=== PATIENT | male | born 2005 | race Caucasian/White ===

== ENCOUNTER 2024-12-11 09:00 | Inpatient (IN) | payer OTHER ==
[~2024-12-11] VITALS: Ht 175.3 cm; Wt 85.0 kg
[2024-12-11 09:34] LABS: HEMATOCRIT 43.7 % (42.0-52.0); HEMOGLOBIN 14.9 g/dl (13.5-17.5); MEAN CORPUSCULAR HEMOGLOBIN 29.2 pg (27.0-33.0); MEAN CORPUSCULAR HGB CONC 34.1 g/dl (32.0-36.5); MEAN CORPUSCULAR VOLUME 85.7 fl (80.0-96.0); PLATELET COUNT, AUTOMATED 177 10^3/uL (150-450)
[2024-12-11 09:59] LABS: ETHYL ALCOHOL (ETHANOL) 0.004 % (0.000-0.010)
[2024-12-11 10:01] LABS: ALBUMIN 4.5 G/DL (3.2-5.2); ALKALINE PHOSPHATASE 87 U/L (40-129); ALT/SGPT 31 U/L (7.0-40); AST/SGOT 17 U/L (<34); BILIRUBIN,DIRECT 0.3 MG/DL (<0.4); BILIRUBIN,TOTAL 0.8 MG/DL (0.3-1.2); BLOOD UREA NITROGEN 10 MG/DL (9-23); CALCIUM LEVEL 9.7 MG/DL (8.5-10.1); CARBON DIOXIDE LEVEL 28 MMOL/L (20-31); CHLORIDE LEVEL 106 MMOL/L (98-107); CREATININE FOR GFR 0.83 MG/DL (0.70-1.30); GLOMERULAR FILTRATION RATE > 90.0 (>60); GLUCOSE, FASTING 88 MG/DL (60-100); SALICYLATE LEVEL < 3.0 MG/DL (<30); SODIUM LEVEL 143 MMOL/L (136-145); TOTAL PROTEIN 7.4 G/DL (5.7-8.2)
[2024-12-11 10:03] LABS: THYROID STIMULATING HORMONE 1.628 uIU/ML (0.48-4.17)
[2024-12-11 10:35] LABS: AMPHETAMINES LEVEL URINE NEGATIVE (NEGATIVE); BARBITURATES URINE NEGATIVE (NEGATIVE); BENZODIAZEPINES URINE NEGATIVE (NEGATIVE); CANNABINOIDS URINE NEGATIVE (NEGATIVE); COCAINE METABOLITE URINE NEGATIVE (NEGATIVE); METHADONE URINE NEGATIVE (NEGATIVE); OPIATES URINE NEGATIVE (NEGATIVE); PHENCYCLIDINE URINE NEGATIVE (NEGATIVE)
[2024-12-11] MEDS ORDERED: HOME MED LIST COMPLETE! XX SCH (11:35)
[2024-12-11] MEDS ORDERED: NAPR-885 PO (11:35)
[2024-12-11] MEDS ORDERED: METH-1165 PO (11:35)
[2024-12-11] MEDS ORDERED: diphenhydrAMINE 25MG CAP PO PRN (13:05)
[2024-12-11] MEDS ORDERED: LORazepam 1 MG TAB PO PRN (13:05)
[2024-12-11] MEDS ORDERED: OLANZapine 5 MG TAB PO PRN (13:05)
[2024-12-11] MEDS ORDERED: MAALOX 30 ML SUSP *UDC PO PRN (13:05)
[2024-12-11] MEDS ORDERED: MOM 30ML SUSPENSION UDC PO PRN (13:05)
[2024-12-11] MEDS ORDERED: traZODone 50 MG TAB PO PRN (13:05)
[2024-12-11 14:15] VITALS: BP 101/59; TEMP 97.8; O2SAT 99
[2024-12-12 06:44] VITALS: BP 108/54; TEMP 97.2; O2SAT 100
[2024-12-12] MEDS: NICOTINE 14 MG/24 HR TRANSDERMAL TD SCH (08:39)
[2024-12-12] MEDS: ESCITALOPRAM OXALATE 10 MG TAB (LEXAPRO) PO SCH (10:34)
[2024-12-12 16:00] VITALS: BP 105/61; TEMP 97.4; O2SAT 100
[2024-12-12] MEDS: ACETAMINOPHEN 325 MG TAB PO PRN (17:12)
[2024-12-13 06:21] VITALS: BP 111/59; TEMP 97.2; O2SAT 100
[2024-12-13 17:01] VITALS: BP 132/69; TEMP 97.9; O2SAT 100
[2024-12-14 06:34] VITALS: BP 143/77; TEMP 97; O2SAT 99
[2024-12-14] MEDS ORDERED: LEXA1TAB PO (08:23)
== END 2024-12-14 10:32 | disposition home or self-care (01) | DRG 881 ==
LOC: M ED 09:00 → M ED INP 13:04 → M PSY 13:56
PROVIDERS: ADMIT Internal Medicine; ATTEND Internal Medicine
DX: F32.A Depression, unspecified (principal); R45.851 Suicidal ideations; F41.9 Anxiety disorder, unspecified; F43.10 Post-traumatic stress disorder, unspecified; R45.850 Homicidal ideations; K21.9 Gastro-esophageal reflux disease without esophagitis; M54.9 Dorsalgia, unspecified; G89.29 Other chronic pain; Z79.899 Other long term (current) drug therapy

== ENCOUNTER → 2025-02-11 | Outpatient (CLI) | payer OTHER ==
[~2025-02-11] MED LIST: LEXA1TAB PO; METH-1165 PO; NAPR-885 PO
== END ==
LOC: M EKG 09:29
DX: R00.2 Palpitations (principal); R00.0 Tachycardia, unspecified